=== PATIENT | female | born 1965 | race Caucasian/White ===

== ENCOUNTER 2016-07-28 05:42 | Inpatient (IN) | payer MEDICARE, OTHER ==
[2016-07-26 17:38] LABS: BASOPHILS 0.4 %; BASOPHILS ABSOLUTE 0.02 10/3/uL (0.0-0.16); EOSINOPHILS 6.4 %; EOSINOPHILS ABSOLUTE 0.32 10/3/uL (0.0-0.53); HEMATOCRIT 40.4 % (36.0-48.0); HEMOGLOBIN 13.8 g/dL (12.0-16.0); IMMATURE GRANULOCYTES 0.2 %; IMMATURE GRANULOCYTES ABSOLUTE 0.01 10/3/uL (0.0-0.11); LYMPHOCYTES ABSOLUTE 1.34 10/3/uL (0.67-4.30); MANUAL DIFF NO %; MEAN CORPUS HGB CONC 34.2 g/dL (32.0-36.0); MEAN CORPUSCULAR HEMOGLOB 32.9 pg (26.0-34.0); MEAN CORPUSCULAR VOLUME 96.2 fL (80-100); MEAN PLATELET VOLUME 9.4 fL (9.2-13.0); MONOCYTES 6.4 %; MONOCYTES ABSOLUTE 0.32 10/3/uL (0.21-1.20); NEUTROPHILS 59.6 %; NEUTROPHILS ABSOLUTE 2.96 10/3/uL (2.02-8.40); PLATELET COUNT 257 10/3/uL (150-400); RBC DISTRIBUTION WIDTH 12.8 % (12.0-16.0)
[2016-07-26 17:44] LABS: PROTIME (NOT ORD) 12.7 SEC (12.0-14.5)
[2016-07-26 18:03] LABS: A/G RATIO 0.9 (0.7-1.9); ALBUMIN 3.6 G/DL (3.5-5.0); BUN (BLOOD UREA NITROGEN) 9 MG/DL (6-23); CHLORIDE, SERUM 105 MMOL/L (96-112); CO2 (CARBON DIOXIDE) 27 MMOL/L (24-34); CREATININE 0.91 MG/DL (0.55-1.02); GFR AFRICAN AMERICAN 85 ML/MIN (>=60); GFR NON AFRICAN AMERICAN 73 ML/MIN (>=60); GLOBULIN 3.8 G/DL (2.5-4.1); GLUCOSE, SERUM 92 MG/DL (60-99); SGOT(AST) 12 U/L (5-40); SGPT(ALT) 17 U/L (5-65); TOTAL BILIRUBIN 0.2 MG/DL (0-1.2); TOTAL PROTEIN 7.4 G/DL (6.0-8.5)
[2016-07-26 18:04] LABS: ALKALINE PHOSPHATASE 117 U/L (45-117); POTASSIUM, SERUM 3.3 MMOL/L (3.5-5.3); SODIUM, SERUM 142 MMOL/L (135-148)
[2016-07-26 18:53] LABS: ASCORBIC ACID (UR NOT ORDER) NEG (NEG); BILIRUBIN, URINE NEGATIVE (NEG); KETONE, URINE NEGATIVE (NEG); LEUKOCYTE ESTERASE(NOT OR TRACE (NEG); WBC (NOT ORDERED) (RFLEX) 10 (0-5)
--- NOTE | ~2016-07-28 | DS ---
Discharge Summary [facility] [address] [place]. [address] NAME: DERREK ROGERS : 63 STATUS : DIS IN PAT#: [id number] AGE: 50 ADM/REG DATE : 07/28/16 MR#: [id number] REPORT SERV DATE: 08/09/16 DICTATED BY: ALEKS HOUGH DATE: 08/09/16 REPORT STATUS : Draft TRANSCRIBED BY: BASHIR DATE: 08/09/16 Data Collection from hospitalization DISCHARGE DIAGNOSES: 1. 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 2. Hypertension. 3. Chronic obstructive pulmonary disease. 4. Bipolar. 5. History of seizure disorder. 6. Tobacco use. CONSULTATIONS: None. PROCEDURES: Redo left thoracotomy for wedge resection of basilar segmental left lower lobe osteosarcomatous mass, 07/28/2016. 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 Other findings-none. DISCHARGE MEDICATIONS: Proventil two puffs via inhaler every six hours as needed, aspirin daily as instructed, Biotene capsules as instructed, Tegretol 400 mg twice a day, Soma 350 mg twice a day, Coreg 6.25 mg twice a day, Plavix 75 mg daily, Valium 10 mg twice a day, Benadryl 25 mg every six hours as needed, Flonase nasal spray as needed, Atarax 50 mg every 8 hours as needed, Singulair 10 mg at bedtime, multivitamins as instructed, Pamelor 50 mg at bedtime, Zofran 8 mg as needed, OxyContin 20 mg every 12 hours, Percocet one to two tablets every four to six hours as needed, Pravachol 40 mg at bedtime, Compazine 10 mg every six hours as needed, Zantac 150 mg twice a day, Topamax 50 mg twice a day, Phenergan gel 0.5 mg as needed. CONDITION ON DISCHARGE: Stable. DISPOSITION: The patient was discharged home on a regular diet with activities as instructed. FOLLOWUP: She would follow up with me, 08/22/[address] Joshua Corley as instructed. 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 The patient then had known metastatic lesion of the left upper lobe, which was resected by left thoracoscopy. Several years later, the patient had recurrence of left-sided lung and chest wall masses, which were also resected. The patient now has a mass in the basal segment of the left lower lobe. Treatment options were discussed and it was elected to proceed with surgical intervention. She was admitted to the hospital at this time for further evaluation and treatment. Upon admission, she was taken to the operating room where she underwent the above-mentioned Discharge Summary [address] [address] NAME: DERREK ROGERS : 63 STATUS : DIS IN PAT#: [id number] AGE: 50 ADM/REG DATE : 07/28/16 MR#: [id number] REPORT SERV DATE: 08/09/16 DICTATED BY: ALEKS HOUGH DATE: 08/09/16 REPORT STATUS : Draft TRANSCRIBED BY: BASHIR DATE: 08/09/16 procedure. She tolerated this well and there were no complications. On postop day #1, she had good pain control. She denied lower extremity numbness. Chest x-ray showed bibasilar atelectasis. She was transferred to the floor. We encouraged her to use incentive spirometry. On 07/30/2016, the epidural catheter was removed and the tip was intact. She was feeling okay. She had no shortness of breath. Over the next couple of days, she continued to do well. She did have a bowel movement. On 08/01/2016, she had no new complaints. O2 saturation was 96% on room air. Discharge instructions were given. Due to her improved and stable condition, she was discharged home with the above-stated instructions. Information collected by: Rose Colon I submit the above information as my discharge summary. ALESIA/BASHIR Aleks Hough M.D. / [id number] CC: Lou Prado HAK SOK
--- NOTE | ~2016-07-28 | OP ---
Record Of Operation [facility] [address] [place]. [address] NAME: DERREK ROGERS : 63 STATUS : ADM IN [facility]#: [id number] AGE: 50 ADM/REG DATE : 07/28/16 MR#: [id number] REPORT SERV DATE: 07/28/16 DICTATED BY: ALEKS HOUGH DATE: 07/28/16 REPORT STATUS : Draft TRANSCRIBED BY: MODL DATE: 07/28/16 DATE OF PROCEDURE: 07/28/2016 PREOPERATIVE DIAGNOSIS: Mass left lower lobe of lung, probable metastatic osteosarcoma. POSTOPERATIVE DIAGNOSIS: Mass left lower lobe of lung, probable metastatic osteosarcoma with diagnosis of osteosarcoma metastasis. OPERATIVE PROCEDURE: Redo left thoracotomy for wedge resection of basilar segmental left lower lobe osteosarcomatous mass. OPERATIVE SURGEON: Aleks Hough M.D. ANESTHESIA: General endotracheal anesthesia, AA. CHEST TUBES PLACED: Single chest tube in the left pleural space. PERTINENT HISTORY: The patient is a 50-year-old female approximately 10 years status post diagnosis osteosarcoma of the left femur requiring left above-knee amputation. The patient then had known metastatic lesion left upper lobe, which was resected by left thoracoscopy. The patient several years later had recurrence of left-sided lung and chest wall masses which were also resected. The patient now with a mass in the basal segment of left lower lobe. OPERATIVE FINDINGS: The patient had dense adhesions in the left pleural space. The left lower lobe or mass was basilar at the level of pleural surface. This was removed by wedge resection. The margins relatively close, but clear. No other lesions were palpable. OPERATIVE PROCEDURE: The patient was taken to the operating room and placed in the supine position. Anesthesia was obtained. The patient turned position. Left lateral thoracotomy was then performed. Pleural space was entered. Both the lesions were encountered. These were lysed with meticulous dissection. Left lower lobe was mobilized. The diaphragmatic surface was examined. The diaphragmatic surface of the basilar segment had visible lesion. This was then resected with wedge resection. Margins were close but clear. No air leak was noted. Single chest tube was placed in the left pleural space posteriorly. The intercostal space was approximated with four #2 Vicryl pericostal sutures with drill sites to the lower rib. The chest with #1 Stratafix suture. Skin and subcutaneous . The patient was extubated in the operating room and taken to recovery room in stable condition. CALEB/BASHIR Aleks Hough M.D. Record Of Operation [place] [address] [place]. [address] NAME: DERREK ROGERS : 63 STATUS : ADM IN [facility]#: [id number] AGE: 50 ADM/REG DATE : 07/28/16 MR#: [id number] REPORT SERV DATE: 07/28/16 DICTATED BY: ALEKS HOUGH DATE: 07/28/16 REPORT STATUS : Draft TRANSCRIBED BY: BASHIR DATE: 07/28/16 / [id number] CC: Lou Prado MD
[~2016-07-28 05:42] MED LIST: AMIT25 PO; ASA5GR PO; ASAB PO; ATARAX50B PO; BEN25 PO; COMP10B PO; COREG6 PO; FLONASE NAS; HARD NAILS; MUCINEX600 MG PO; MULTIPLE VIT; NOR50 PO; OXYCON10 PO; OXYCON20 PO; PERCOCET 10/3251 TAB PO; PHENERGAN; PHENERGAN GEL PO; PLAVIX PO; PRAVACHOL40 MG PO; PRILO PO; PROVHFA INH; SINGULAIR1 PO; SOMATAB PO; TEG200 PO; TOPAMAX25 PO; V5 PO; ZANTAC150 MG PO; ZOFRAN; ZOFRAN8 PO; ZOVIRAX400 MG PO
[2016-07-28 10:41] LABS: BASOPHILS 0.3 %; BASOPHILS ABSOLUTE 0.02 10/3/uL (0.0-0.16); EOSINOPHILS 3.9 %; HEMOGLOBIN 12.3 g/dL (12.0-16.0); IMMATURE GRANULOCYTES 0.1 %; IMMATURE GRANULOCYTES ABSOLUTE 0.01 10/3/uL (0.0-0.11); LYMPHOCYTES 14.6 %; LYMPHOCYTES ABSOLUTE 1.12 10/3/uL (0.67-4.30); MEAN CORPUSCULAR HEMOGLOB 33.3 pg (26.0-34.0); MEAN CORPUSCULAR VOLUME 98.1 fL (80-100); MEAN PLATELET VOLUME 8.8 fL (9.2-13.0); MONOCYTES 3.6 %; MONOCYTES ABSOLUTE 0.28 10/3/uL (0.21-1.20); NEUTROPHILS 77.5 %; NEUTROPHILS ABSOLUTE 5.96 10/3/uL (2.02-8.40); PLATELET COUNT 201 10/3/uL (150-400); RBC DISTRIBUTION WIDTH 12.8 % (12.0-16.0); RED CELL COUNT 3.69 10/6/uL (4.0-5.6)
[2016-07-28 10:42] LABS: HEMATOCRIT 36.2 % (36.0-48.0); WHITE BLOOD CELLS 7.7 10/3/uL (4.5-10.5)
[2016-07-28 10:43] LABS: MANUAL DIFF NO %
[2016-07-28 10:52] LABS: BUN (BLOOD UREA NITROGEN) 13 MG/DL (6-23); CALCIUM, SERUM 7.6 MG/DL (8.5-10.4); CHLORIDE, SERUM 110 MMOL/L (96-112); CO2 (CARBON DIOXIDE) 24 MMOL/L (24-34); CREATININE 0.95 MG/DL (0.55-1.02); GFR AFRICAN AMERICAN 80 ML/MIN (>=60); GFR NON AFRICAN AMERICAN 69 ML/MIN (>=60); GLUCOSE, SERUM 145 MG/DL (60-99); POTASSIUM, SERUM 4.5 MMOL/L (3.5-5.3); SODIUM, SERUM 141 MMOL/L (135-148)
[2016-07-29 06:29] LABS: BASOPHILS 0.2 %; BASOPHILS ABSOLUTE 0.02 10/3/uL (0.0-0.16); EOSINOPHILS 2.2 %; EOSINOPHILS ABSOLUTE 0.19 10/3/uL (0.0-0.53); HEMATOCRIT 37.5 % (36.0-48.0); HEMOGLOBIN 12.8 g/dL (12.0-16.0); IMMATURE GRANULOCYTES 0.2 %; IMMATURE GRANULOCYTES ABSOLUTE 0.02 10/3/uL (0.0-0.11); MEAN CORPUS HGB CONC 34.1 g/dL (32.0-36.0); MEAN CORPUSCULAR HEMOGLOB 33.9 pg (26.0-34.0); MEAN CORPUSCULAR VOLUME 99.2 fL (80-100); MONOCYTES 6.3 %; MONOCYTES ABSOLUTE 0.55 10/3/uL (0.21-1.20); NEUTROPHILS 83.1 %; NEUTROPHILS ABSOLUTE 7.25 10/3/uL (2.02-8.40); PLATELET COUNT 160 10/3/uL (150-400); RBC DISTRIBUTION WIDTH 12.5 % (12.0-16.0); RED CELL COUNT 3.78 10/6/uL (4.0-5.6); WHITE BLOOD CELLS 8.7 10/3/uL (4.5-10.5)
[2016-07-29 06:31] LABS: MANUAL DIFF NO %
[2016-07-29 06:39] LABS: CALCIUM, SERUM 7.8 MG/DL (8.5-10.4); CHLORIDE, SERUM 105 MMOL/L (96-112); CO2 (CARBON DIOXIDE) 27 MMOL/L (24-34); CREATININE 0.81 MG/DL (0.55-1.02); GFR AFRICAN AMERICAN 97 ML/MIN (>=60); GFR NON AFRICAN AMERICAN 84 ML/MIN (>=60); GLUCOSE, SERUM 125 MG/DL (60-99); POTASSIUM, SERUM 4.1 MMOL/L (3.5-5.3); SODIUM, SERUM 138 MMOL/L (135-148)
[2016-07-29 06:42] LABS: BUN (BLOOD UREA NITROGEN) 7 MG/DL (6-23)
[2016-07-31 06:51] LABS: BASOPHILS 0.3 %; BASOPHILS ABSOLUTE 0.02 10/3/uL (0.0-0.16); EOSINOPHILS 5.9 %; EOSINOPHILS ABSOLUTE 0.34 10/3/uL (0.0-0.53); HEMATOCRIT 35.2 % (36.0-48.0); HEMOGLOBIN 12.3 g/dL (12.0-16.0); LYMPHOCYTES 14.8 %; LYMPHOCYTES ABSOLUTE 0.86 10/3/uL (0.67-4.30); MEAN CORPUS HGB CONC 34.9 g/dL (32.0-36.0); MEAN CORPUSCULAR HEMOGLOB 33.3 pg (26.0-34.0); MEAN PLATELET VOLUME 9.3 fL (9.2-13.0); MONOCYTES 5.9 %; MONOCYTES ABSOLUTE 0.34 10/3/uL (0.21-1.20); NEUTROPHILS 73.1 %; NEUTROPHILS ABSOLUTE 4.25 10/3/uL (2.02-8.40); PLATELET COUNT 182 10/3/uL (150-400); RBC DISTRIBUTION WIDTH 12.3 % (12.0-16.0); RED CELL COUNT 3.69 10/6/uL (4.0-5.6); WHITE BLOOD CELLS 5.8 10/3/uL (4.5-10.5)
[2016-07-31 06:52] LABS: MANUAL DIFF NO %; MEAN CORPUSCULAR VOLUME 95.4 fL (80-100)
[2016-07-31 07:02] LABS: BUN (BLOOD UREA NITROGEN) 9 MG/DL (6-23); CALCIUM, SERUM 8.3 MG/DL (8.5-10.4); CHLORIDE, SERUM 103 MMOL/L (96-112); CO2 (CARBON DIOXIDE) 27 MMOL/L (24-34); CREATININE 0.79 MG/DL (0.55-1.02); GFR AFRICAN AMERICAN 100 ML/MIN (>=60); GFR NON AFRICAN AMERICAN 87 ML/MIN (>=60); POTASSIUM, SERUM 3.8 MMOL/L (3.5-5.3); SODIUM, SERUM 138 MMOL/L (135-148)
[2016-07-31 07:03] LABS: GLUCOSE, SERUM 99 MG/DL (60-99)
[2016-08-01 04:44] LABS: BASOPHILS 0.2 %; BASOPHILS ABSOLUTE 0.01 10/3/uL (0.0-0.16); EOSINOPHILS 8.1 %; EOSINOPHILS ABSOLUTE 0.43 10/3/uL (0.0-0.53); HEMATOCRIT 34.7 % (36.0-48.0); HEMOGLOBIN 12.3 g/dL (12.0-16.0); IMMATURE GRANULOCYTES 0.2 %; IMMATURE GRANULOCYTES ABSOLUTE 0.01 10/3/uL (0.0-0.11); LYMPHOCYTES 17.8 %; LYMPHOCYTES ABSOLUTE 0.95 10/3/uL (0.67-4.30); MEAN CORPUS HGB CONC 35.4 g/dL (32.0-36.0); MEAN CORPUSCULAR HEMOGLOB 33.8 pg (26.0-34.0); MEAN CORPUSCULAR VOLUME 95.3 fL (80-100); MEAN PLATELET VOLUME 9.3 fL (9.2-13.0); MONOCYTES 8.2 %; MONOCYTES ABSOLUTE 0.44 10/3/uL (0.21-1.20); NEUTROPHILS 65.5 %; PLATELET COUNT 197 10/3/uL (150-400); RBC DISTRIBUTION WIDTH 12.3 % (12.0-16.0); RED CELL COUNT 3.64 10/6/uL (4.0-5.6); WHITE BLOOD CELLS 5.3 10/3/uL (4.5-10.5)
[2016-08-01 04:51] LABS: MANUAL DIFF NO %
[2016-08-01 05:02] LABS: CALCIUM, SERUM 8.7 MG/DL (8.5-10.4); CHLORIDE, SERUM 102 MMOL/L (96-112); CO2 (CARBON DIOXIDE) 26 MMOL/L (24-34); CREATININE 0.97 MG/DL (0.55-1.02); GFR AFRICAN AMERICAN 78 ML/MIN (>=60); GFR NON AFRICAN AMERICAN 68 ML/MIN (>=60); GLUCOSE, SERUM 100 MG/DL (60-99); POTASSIUM, SERUM 3.9 MMOL/L (3.5-5.3); SODIUM, SERUM 138 MMOL/L (135-148)
[2016-08-01 05:05] LABS: BUN (BLOOD UREA NITROGEN) 14 MG/DL (6-23)
== END 2016-08-01 14:58 | disposition home or self-care (01) | DRG 164 ==
LOC: SDC/OF 05:42 → PACU 10:21 → CVICU 13:29 → 5NO 07-29 13:00
PROVIDERS: Nurse Practitioner Family; Thoracic Surgery (Cardiothoracic Vascular Surgery)
PROC: 0BBJ4ZZ Excision of Left Lower Lung Lobe, Percutaneous Endoscopic Approach (ICD-10-PCS; principal; 2016-07-28 07:45)
DX: C78.02 Secondary malignant neoplasm of left lung (principal); J98.11 Atelectasis; Z89.612 Acquired absence of left leg above knee; Z85.830 Personal history of malignant neoplasm of bone; Z90.710 Acquired absence of both cervix and uterus; Z90.49 Acquired absence of other specified parts of digestive tract; Z87.891 Personal history of nicotine dependence; I25.10 Atherosclerotic heart disease of native coronary artery without angina pectoris; Z95.5 Presence of coronary angioplasty implant and graft; F31.9 Bipolar disorder, unspecified
CPT/HCPCS: 36415; 71010; 71020; 80048; 80053; 81001; 82962; 83036; 85025; 85610; 86850; 86900; 86901; 86902; 86904; 86920; 86922; 87641; 88307; 88331; 88332; 93005; A9270-GY; J0690; J1940; J2250; J2300; J2370; J2405; J2550; J2710; J3010